=== PATIENT | female | born 2000 | race American Indian/Alaskan Native ===

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

== ENCOUNTER 2019-09-11 22:45 | Emergency (ER) | payer MEDICAID, OTHER ==
[2019-09-11] MEDS ORDERED: Amoxicillin 500 MG Cap PO ONE (23:15)
--- NOTE | 2019-09-11 23:23 | EDM.PDOC ---
ED HPI GENERAL MEDICAL PROBLEM - General Chief Complaint: ENT Problem Stated Complaint: TOOTH ACHE Time Seen by Provider: 09/11/19 23:10 Source of Information: Reports: Patient History Limitations: Reports: No Limitations - History of Present Illness INITIAL COMMENTS - FREE TEXT/NARRATIVE: left lower 2nd molar chipped one month ago tonight pain after chewing gum some swelling lower jaw no fever or chills. 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 Right Upper Tooth/Teeth Pain Score (Numeric/FACES): 4 - Related Data Allergies Allergy/AdvReac Type Severity Reaction Status Date / Time No Known Allergies Allergy Verified 09/11/19 22:50 Home Meds: Home Meds metFORMIN [Glucophage XR] 500 mg PO BIDMEALS 09/11/19 [History] Past Medical History - Past Health History Medical/Surgical History: Denies Medical/Surgical History Endocrine/Metabolic History: Reports: Diabetes, Type II Other Endocrine/Metabolic History: Pre diabetic Social & Family History - Family History Family Medical History: Noncontributory - Tobacco Use Smoking Status *Q: Current Every Day Smoker Years of Tobacco use: 1 Packs/Tins Daily: 0.1 - Caffeine Use Caffeine Use: Reports: Soda - Recreational Drug Use Recreational Drug Use: Yes Recreational Drug Type: Reports: Marijuana/Hashish ED ROS ENT - Review of Systems Review Of Systems: Comprehensive ROS is negative, except as noted in HPI. ED EXAM, ENT - Physical Exam Exam: See Below Exam Limited By: No Limitations General Appearance: Alert, No Apparent Distress Eye Exam: Bilateral Eye: EOMI Ears: Normal External Exam, Normal Canal Nose: Normal Inspection Mouth/Throat: Dental Abcess, Dental Pain (left lower 2nd molar ) Head: Atraumatic, Normocephalic Respiratory/Chest: No Respiratory Distress, Lungs Clear Cardiovascular: Normal Peripheral Pulses, Regular Rate, Rhythm Neurological: Alert, Oriented, Normal Cognition Psychiatric: Normal Affect, Normal Mood Skin: Warm, Dry, Intact Course - Vital Signs Last Recorded V/S: Last Vital Signs Temp 97.8 F 09/11/19 22:51 Pulse 87 09/11/19 22:51 Resp 18 09/11/19 22:51 BP 125/79 09/11/19 22:51 Pulse Ox 97 09/11/19 22:51 - Orders/Labs/Meds Meds: Medications Discontinued Medications Generic Name Dose Route Start Last Admin Trade Name Freq PRN Reason Stop Dose Admin Amoxicillin 500 mg 09/11/19 23:15 Amoxil PO 09/11/19 23:16 ONETIME ONE Departure - Departure Time of Disposition: 23:19 Disposition: Home, Self-Care 01 Condition: Good Clinical Impression: Pain due to dental caries - Discharge Information *PRESCRIPTION DRUG MONITORING PROGRAM REVIEWED*: No *COPY OF PRESCRIPTION DRUG MONITORING REPORT IN PATIENT CHASE: No Instructions: Dental Abscess, [id number] Additional Instructions: alternate tylenol and ibuprofen amoxicillin 500mg one three times daily chew opposite side room temperature liquids follow up with dentist this week Sepsis Event Note (ED) - Evaluation Sepsis Screening Result: No Definite Risk - Focused Exam Vital Signs: Vital Signs Temp Pulse Resp BP Pulse Ox 09/11/19 22:51 97.8 F 87 18 125/79 97
== END 2019-09-11 23:24 | disposition home or self-care (01) ==
LOC: DL.ED 22:45
DX: K02.9 Dental caries, unspecified (principal); K04.7 Periapical abscess without sinus; E11.9 Type 2 diabetes mellitus without complications; F17.210 Nicotine dependence, cigarettes, uncomplicated; Z79.84 Long term (current) use of oral hypoglycemic drugs
CPT/HCPCS: 99282; A9270

== ENCOUNTER 2020-04-17 20:19 | Emergency (ER) | payer MEDICAID ==
[2020-04-17 21:37] LABS: ANION GAP 17.1 mEq/L (7-13); CHLORIDE,CL 99 mmol/L (98-107); SODIUM,NA 137 mmol/L (136-145)
[2020-04-17] MEDS ORDERED: Insulin Regular, Human 100 Units/ML 3 ML Vial IV ONE (22:17)
--- NOTE | 2020-04-17 22:23 | EDM.PDOC ---
ED HPI GENERAL MEDICAL PROBLEM - General Chief Complaint: Neurological Problem Stated Complaint: LEFT FOOT LOSING FEELING, DIABETIC Time Seen by Provider: 04/17/20 20:40 Source of Information: Reports: Patient History Limitations: Reports: No Limitations - History of Present Illness INITIAL COMMENTS - FREE TEXT/NARRATIVE: ED with c/o noticing decreased sensation to top of left foot for past 2 days. Feels different when walking. Admits poor managment of diabetes in past couple of months, Has not checked sugars but knows they are higher as urinating more often. Has not been to clinic. No refills on Metformin and has not had any for at least past month and a half No other weakness or change in sensation. - Related Data Allergies Allergy/AdvReac Type Severity Reaction Status Date / Time No Known Allergies Allergy Verified 04/17/20 20:47 Home Meds: Home Meds metFORMIN [Glucophage XR] 500 mg PO BIDMEALS 09/11/19 [History] Past Medical History - Past Health History Medical/Surgical History: Denies Medical/Surgical History Endocrine/Metabolic History: Reports: Diabetes, Type II Other Endocrine/Metabolic History: Pre diabetic Social & Family History - Family History Family Medical History: No Pertinent Family History - Tobacco Use Tobacco Use Status *Q: Never Tobacco User Second Hand Smoke Exposure: No - Caffeine Use Caffeine Use: Reports: Soda - Alcohol Use Date of Last Drink: 04/12/20 - Recreational Drug Use Recreational Drug Use: No ED ROS GENERAL - Review of Systems Review Of Systems: Comprehensive ROS is negative, except as noted in HPI. ED EXAM, GENERAL - Physical Exam Exam: See Below Exam Limited By: No Limitations General Appearance: Alert, No Apparent Distress Eye Exam: Bilateral Eye: EOMI Ears: Normal External Exam, Hearing Grossly Normal Throat/Mouth: Normal Inspection, Normal Voice Head: Atraumatic, Normocephalic Neck: Normal Inspection, Full Range of Motion Respiratory/Chest: No Respiratory Distress, Lungs Clear, Normal Breath Sounds Cardiovascular: Normal Peripheral Pulses, Regular Rate, Rhythm GI/Abdominal: Normal Bowel Sounds, Soft Extremities: Normal Inspection, Normal Range of Motion, No Pedal Edema, Normal Capillary Refill, Other (slower flexion extneion on left than right mild decrease sensation dorsal mid foot in comparison to right). No: Limited Range of Motion Neurological: Alert, Oriented, Normal Cognition Psychiatric: Normal Affect Skin Exam: Warm, Intact, Normal Color. No: Ecchymosis Course - Vital Signs Last Recorded V/S: Last Vital Signs Temp 97.9 F 04/17/20 20:35 Pulse 81 04/17/20 20:35 Resp 19 04/17/20 20:35 BP 141/78 H 04/17/20 20:35 Pulse Ox 98 04/17/20 20:35 - Orders/Labs/Meds Labs: Laboratory Tests 04/17/20 04/17/20 04/17/20 Range/Units 20:44 20:57 20:57 WBC (5.0-10.0) 10^3/uL RBC (4.2-5.4) 10^6/uL Hgb (12.0-16.0) g/dL Hct (37.0-47.0) % MCV (80-100) fL MCH (27.0-34.0) pg MCHC (33.0-35.0) g/dL Plt Count (150-450) 10^3/uL Neut % (Auto) (42.2-75.2) % Lymph % (Auto) (20.5-50.1) % [place] % (Auto) (2-8) % Eos % (Auto) (1.0-3.0) % Baso % (Auto) (0.0-1.0) % Sodium (136-145) mmol/L Potassium (3.5-5.1) mmol/L Chloride (98-107) mmol/L Carbon Dioxide (21-32) mmol/L Anion Gap (7-13) mEq/L BUN (7-18) mg/dL Creatinine (0.55-1.02) mg/dL Est Cr Clr Drug Dosing mL/min Estimated GFR (MDRD) BUN/Creatinine Ratio (No establ ref range) Glucose (74-99) mg/dL POC Glucose 387 H (70-105) mg/dl Lactic Acid (0.4-2.0) mmol/L Calcium (8.5-10.1) mg/dL Total Bilirubin (0.2-1.0) mg/dL AST (15-37) U/L ALT (14-59) U/L Alkaline Phosphatase (46-116) U/L Total Protein (6.4-8.2) g/dL Albumin (3.4-5.0) g/dL Globulin Albumin/Globulin Ratio Urine Color Yellow (YELLOW) Urine Appearance Clear (CLEAR) Urine pH 5.5 (5.0-9.0) Ur Specific [place] 1.020 (1.005-1.030) Urine Protein Negative (NEGATIVE) Urine Glucose (UA) 500 H (NEGATIVE) Urine Ketones Negative (NEGATIVE) Urine Occult Blood Negative (NEGATIVE) Urine Nitrite Negative (NEGATIVE) Urine Bilirubin Negative (NEGATIVE) Urine Urobilinogen 0.2 (0.2-1.0) mg/dL Ur Leukocyte Esterase Negative (NEGATIVE) Urine HCG, Qual Negative Urine Opiates Screen (NEGATIVE) Ur Oxycodone Screen (NEGATIVE) Urine Methadone Screen (NEGATIVE) Ur Barbiturates Screen (NEGATIVE) U Tricyclic Antidepress (NEGATIVE) Ur Phencyclidine Scrn (NEGATIVE) Ur Amphetamine Screen (NEGATIVE) U Methamphetamines Scrn (NEGATIVE) Urine MDMA Screen (NEGATIVE) U Benzodiazepines Scrn (NEGATIVE) Urine Cocaine Screen (NEGATIVE) U Marijuana (THC) Screen (NEGATIVE) 04/17/20 04/17/20 04/17/20 Range/Units 20:57 21:00 21:00 WBC 6.3 (5.0-10.0) 10^3/uL RBC 4.20 (4.2-5.4) 10^6/uL Hgb 13.3 (12.0-16.0) g/dL Hct 39.0 (37.0-47.0) % MCV 92.9 D (80-100) fL MCH 31.7 (27.0-34.0) pg MCHC 34.1 (33.0-35.0) g/dL Plt Count 266 (150-450) 10^3/uL Neut % (Auto) 66.3 (42.2-75.2) % Lymph % (Auto) 25.2 (20.5-50.1) % [place] % (Auto) 6.8 (2-8) % Eos % (Auto) 1.4 (1.0-3.0) % Baso % (Auto) 0.3 (0.0-1.0) % Sodium 137 (136-145) mmol/L Potassium 4.1 (3.5-5.1) mmol/L Chloride 99 (98-107) mmol/L Carbon Dioxide 25 (21-32) mmol/L Anion Gap 17.1 H (7-13) mEq/L BUN 11 (7-18) mg/dL Creatinine 0.70 (0.55-1.02) mg/dL Est Cr Clr Drug Dosing 128.24 mL/min Estimated GFR (MDRD) > 60 BUN/Creatinine Ratio 15.7 (No establ ref range) Glucose 401 H* (74-99) mg/dL POC Glucose (70-105) mg/dl Lactic Acid (0.4-2.0) mmol/L Calcium 8.7 (8.5-10.1) mg/dL Total Bilirubin 0.5 (0.2-1.0) mg/dL AST 12 L (15-37) U/L ALT 39 (14-59) U/L Alkaline Phosphatase 146 H (46-116) U/L Total Protein 7.3 (6.4-8.2) g/dL Albumin 3.5 (3.4-5.0) g/dL Globulin 3.8 Albumin/Globulin Ratio 0.9 Urine Color (YELLOW) Urine Appearance (CLEAR) Urine pH (5.0-9.0) Ur Specific [place] (1.005-1.030) Urine Protein (NEGATIVE) Urine Glucose (UA) (NEGATIVE) Urine Ketones (NEGATIVE) Urine Occult Blood (NEGATIVE) Urine Nitrite (NEGATIVE) Urine Bilirubin (NEGATIVE) Urine Urobilinogen (0.2-1.0) mg/dL Ur Leukocyte Esterase (NEGATIVE) Urine HCG, Qual Urine Opiates Screen Negative (NEGATIVE) Ur Oxycodone Screen Negative (NEGATIVE) Urine Methadone Screen Negative (NEGATIVE) Ur Barbiturates Screen Negative (NEGATIVE) U Tricyclic Antidepress Negative (NEGATIVE) Ur Phencyclidine Scrn Negative (NEGATIVE) Ur Amphetamine Screen Negative (NEGATIVE) U Methamphetamines Scrn Negative (NEGATIVE) Urine MDMA Screen Negative (NEGATIVE) U Benzodiazepines Scrn Negative (NEGATIVE) Urine Cocaine Screen Negative (NEGATIVE) U Marijuana (THC) Screen Negative (NEGATIVE) 04/17/20 04/17/20 Range/Units 21:00 22:57 WBC (5.0-10.0) 10^3/uL RBC (4.2-5.4) 10^6/uL Hgb (12.0-16.0) g/dL Hct (37.0-47.0) % MCV (80-100) fL MCH (27.0-34.0) pg MCHC (33.0-35.0) g/dL Plt Count (150-450) 10^3/uL Neut % (Auto) (42.2-75.2) % Lymph % (Auto) (20.5-50.1) % [place] % (Auto) (2-8) % Eos % (Auto) (1.0-3.0) % Baso % (Auto) (0.0-1.0) % Sodium (136-145) mmol/L Potassium (3.5-5.1) mmol/L Chloride (98-107) mmol/L Carbon Dioxide (21-32) mmol/L Anion Gap (7-13) mEq/L BUN (7-18) mg/dL Creatinine (0.55-1.02) mg/dL Est Cr Clr Drug Dosing mL/min Estimated GFR (MDRD) BUN/Creatinine Ratio (No establ ref range) Glucose (74-99) mg/dL POC Glucose 295 H (70-105) mg/dl Lactic Acid 2.0 (0.4-2.0) mmol/L Calcium (8.5-10.1) mg/dL Total Bilirubin (0.2-1.0) mg/dL AST (15-37) U/L ALT (14-59) U/L Alkaline Phosphatase (46-116) U/L Total Protein (6.4-8.2) g/dL Albumin (3.4-5.0) g/dL Globulin Albumin/Globulin Ratio Urine Color (YELLOW) Urine Appearance (CLEAR) Urine pH (5.0-9.0) Ur Specific [place] (1.005-1.030) Urine Protein (NEGATIVE) Urine Glucose (UA) (NEGATIVE) Urine Ketones (NEGATIVE) Urine Occult Blood (NEGATIVE) Urine Nitrite (NEGATIVE) Urine Bilirubin (NEGATIVE) Urine Urobilinogen (0.2-1.0) mg/dL Ur Leukocyte Esterase (NEGATIVE) Urine HCG, Qual Urine Opiates Screen (NEGATIVE) Ur Oxycodone Screen (NEGATIVE) Urine Methadone Screen (NEGATIVE) Ur Barbiturates Screen (NEGATIVE) U Tricyclic Antidepress (NEGATIVE) Ur Phencyclidine Scrn (NEGATIVE) Ur Amphetamine Screen (NEGATIVE) U Methamphetamines Scrn (NEGATIVE) Urine MDMA Screen (NEGATIVE) U Benzodiazepines Scrn (NEGATIVE) Urine Cocaine Screen (NEGATIVE) U Marijuana (THC) Screen (NEGATIVE) Meds: Medications Discontinued Medications Generic Name Dose Route Start Last Admin Trade Name Abdirashid PRN Reason Stop Dose Admin Insulin Human Regular 3 unit 04/17/20 22:17 04/17/20 22:39 Humulin R IV 04/17/20 22:18 Not Given ONETIME ONE Insulin Human Regular 3 unit 04/17/20 22:26 04/17/20 22:30 Humulin R SUBCUT 04/17/20 22:27 3 unit ONETIME ONE Administration Departure - Departure Time of Disposition: 22:19 Disposition: Home, Self-Care 01 Condition: Good Clinical Impression: Noncompliance with diabetes treatment, Hyperglycemia due to diabetes mellitus Peripheral neuropathy Qualifiers: Peripheral neuropathy type: polyneuropathy, unspecified Qualified Code(s): G62.9 - Polyneuropathy, unspecified - Discharge Information *PRESCRIPTION DRUG MONITORING PROGRAM REVIEWED*: No *COPY OF PRESCRIPTION DRUG MONITORING REPORT IN PATIENT CHASE: No Instructions: Peripheral Neuropathy, Hyperglycemia, [id number] Forms: ED Department Discharge Additional Instructions: Follow up in clinic this week resume diabetic medications, blood sugar monitoring and diabetic diet metformin 500mg twice daily Sepsis Event Note (ED) - Evaluation Sepsis Screening Result: No Definite Risk - Focused Exam Vital Signs: Vital Signs Temp Pulse Resp BP Pulse Ox 04/17/20 20:35 97.9 F 81 19 141/78 H 98
[2020-04-17] MEDS ORDERED: Insulin Regular, Human 100 Units/ML 3 ML Vial SUBCUT ONE (22:26)
== END 2020-04-17 23:00 | disposition home or self-care (01) ==
LOC: DL.ED 20:19
DX: E11.65 Type 2 diabetes mellitus with hyperglycemia (principal); E11.42 Type 2 diabetes mellitus with diabetic polyneuropathy; Z91.19 Patient's noncompliance with other medical treatment and regimen
CPT/HCPCS: 36415; 80053; 80305; 81003; 81025; 82962; 83605; 85025; 99283; J1815

== ENCOUNTER 2020-04-29 18:58 | Emergency (ER) | payer MEDICAID ==
--- NOTE | 2020-04-29 19:52 | EDM.PDOC ---
ED HPI GENERAL MEDICAL PROBLEM - General Chief Complaint: Diabetic Complaint Stated Complaint: CANNOT WALK, DIABETIC, CANNOT FEEL LEGS Time Seen by Provider: 04/29/20 19:47 Source of Information: Reports: Patient, Family (Mother), RN, RN Notes Reviewed History Limitations: Reports: No Limitations - History of Present Illness INITIAL COMMENTS - FREE TEXT/NARRATIVE: Patient presents to the ED via personal vehicle with mother for complaints of cramping, numbness, and tingling to her left lower extremity. The patient reports she has been experiencing numbness and tingling to her foot for approximately two weeks; she reports she will trip over the extremity as she cannot feel its position in space. Additionally, she has been experiencing significant cramping to the calf of this extremity for the past two days. She states the cramping is transient in nature and mostly occurs when she is up walking. She reports she was examined in a local clinic today for this problem and was diagnosed with hypomagnesemia; she was also set up for an OP Venous Doppler for tomorrow to r/o blood clots. She denies edema, erythema, or constant sharp pain to the area. She denies sitting for long periods of time and is not on control. She does attest to a history of an uncomplicated COVID infection in October of 2019. She denies fever, shaking chills, palpitations, chest pain/pressure, or shortness of breath. She denies tobacco, alcohol, and recreational drug use. - Related Data Allergies Allergy/AdvReac Type Severity Reaction Status Date / Time No Known Allergies Allergy Verified 04/29/20 19:25 Home Meds: Home Meds metFORMIN [Glucophage XR] 1,000 mg PO BIDMEALS 09/11/19 [History] Melatonin 0 mg PO BEDTIME PRN 04/29/20 [History] Sertraline [Zoloft] 0 mg PO BEDTIME 04/29/20 [History] Past Medical History - Past Health History Medical/Surgical History: Denies Medical/Surgical History Psychiatric History: Reports: Depression Endocrine/Metabolic History: Reports: Diabetes, Type II Other Endocrine/Metabolic History: Pre diabetic Social & Family History - Family History Family Medical History: No Pertinent Family History - Tobacco Use Tobacco Use Status *Q: Never Tobacco User Second Hand Smoke Exposure: No - Caffeine Use Caffeine Use: Reports: None - Recreational Drug Use Recreational Drug Use: No ED ROS GENERAL - Review of Systems Review Of Systems: Comprehensive ROS is negative, except as noted in HPI. ED EXAM GENERAL NO PERIP PULSE - Physical Exam Exam: See Below Exam Limited By: No Limitations General Appearance: Alert, No Apparent Distress Head: Atraumatic, Normocephalic Neck: Normal Inspection, Supple, Non-Tender, Full Range of Motion Respiratory/Chest: No Respiratory Distress, Lungs Clear, Normal Breath Sounds, No Accessory Muscle Use, Chest Non-Tender Cardiovascular: Normal Peripheral Pulses, Regular Rate, Rhythm, No Edema, No G allop, No JVD, No Murmur, No Rub (Female) Exam: Deferred Rectal (Female) Exam: Deferred Back Exam: Normal Inspection, Full Range of Motion Extremities: Normal Inspection, Normal Range of Motion, Non-Tender, No Pedal Edema, Normal Capillary Refill. No: Pedal Edema, Dominic's Sign, Leg Pain, Increased Warmth, Redness Neurological: Alert, Oriented, CN II-XII Intact, Normal Cognition, Normal Gait, Normal Reflexes, No Motor/Sensory Deficits Psychiatric: Normal Affect, Normal Mood Skin Exam: Warm, Dry, Intact, Normal Color, No Rash. No: Ecchymosis, Erythema, Mottled, Pallor, Petechiae Course - Vital Signs Last Recorded V/S: Last Vital Signs Temp 98.4 F 04/29/20 19:18 Pulse 92 04/29/20 19:18 Resp 18 04/29/20 19:18 BP 142/74 H 04/29/20 19:18 Pulse Ox 98 04/29/20 19:18 - Orders/Labs/Meds Labs: Laboratory Tests 04/29/20 04/29/20 04/29/20 Range/Units 19:21 19:28 19:28 WBC 8.8 (5.0-10.0) 10^3/uL RBC 4.66 (4.2-5.4) 10^6/uL Hgb 14.8 D (12.0-16.0) g/dL Hct 43.6 (37.0-47.0) % MCV 93.6 (80-100) fL MCH 31.8 (27.0-34.0) pg MCHC 33.9 (33.0-35.0) g/dL Plt Count 303 (150-450) 10^3/uL Neut % (Auto) 71.3 (42.2-75.2) % Lymph % (Auto) 21.3 (20.5-50.1) % [place] % (Auto) 5.7 (2-8) % Eos % (Auto) 1.5 (1.0-3.0) % Baso % (Auto) 0.2 (0.0-1.0) % D-Dimer, Quantitative < 100 (0-400) ng/mL Sodium (136-145) mmol/L Potassium (3.5-5.1) mmol/L Chloride (98-107) mmol/L Carbon Dioxide (21-32) mmol/L Anion Gap (7-13) mEq/L BUN (7-18) mg/dL Creatinine (0.55-1.02) mg/dL Est Cr Clr Drug Dosing mL/min Estimated GFR (MDRD) BUN/Creatinine Ratio (No establ ref range) Glucose (74-99) mg/dL POC Glucose 300 H (70-105) mg/dl Calcium (8.5-10.1) mg/dL Magnesium (1.8-2.4) mg/dL Total Bilirubin (0.2-1.0) mg/dL AST (15-37) U/L ALT (14-59) U/L Alkaline Phosphatase (46-116) U/L C-Reactive Protein (0.0-0.9) mg/dL Total Protein (6.4-8.2) g/dL Albumin (3.4-5.0) g/dL Globulin Albumin/Globulin Ratio Ketones 04/29/20 Range/Units 19:28 WBC (5.0-10.0) 10^3/uL RBC (4.2-5.4) 10^6/uL Hgb (12.0-16.0) g/dL Hct (37.0-47.0) % MCV (80-100) fL MCH (27.0-34.0) pg MCHC (33.0-35.0) g/dL Plt Count (150-450) 10^3/uL Neut % (Auto) (42.2-75.2) % Lymph % (Auto) (20.5-50.1) % [place] % (Auto) (2-8) % Eos % (Auto) (1.0-3.0) % Baso % (Auto) (0.0-1.0) % D-Dimer, Quantitative (0-400) ng/mL Sodium 136 (136-145) mmol/L Potassium 3.9 (3.5-5.1) mmol/L Chloride 98 (98-107) mmol/L Carbon Dioxide 26 (21-32) mmol/L Anion Gap 15.9 H (7-13) mEq/L BUN 12 (7-18) mg/dL Creatinine 0.75 (0.55-1.02) mg/dL Est Cr Clr Drug Dosing 119.69 mL/min Estimated GFR (MDRD) > 60 BUN/Creatinine Ratio 16.0 (No establ ref range) Glucose 316 H (74-99) mg/dL POC Glucose (70-105) mg/dl Calcium 8.6 (8.5-10.1) mg/dL Magnesium 1.5 L (1.8-2.4) mg/dL Total Bilirubin 0.5 (0.2-1.0) mg/dL AST 14 L (15-37) U/L ALT 35 (14-59) U/L Alkaline Phosphatase 143 H (46-116) U/L C-Reactive Protein 1.6 H (0.0-0.9) mg/dL Total Protein 7.7 (6.4-8.2) g/dL Albumin 3.6 (3.4-5.0) g/dL Globulin 4.1 Albumin/Globulin Ratio 0.9 Ketones Negative Meds: Medications Discontinued Medications Generic Name Dose Route Start Last Admin Trade Name Freq PRN Reason Stop Dose Admin Magnesium Oxide 500 mg 04/29/20 20:30 04/29/20 20:49 Magnesium Oxide PO 04/29/20 20:31 500 mg ONETIME ONE Administration Magnesium Oxide Confirm 04/29/20 20:50 04/29/20 20:55 Magnesium Oxide Administered 04/29/20 20:51 Not Given Dose 500 mg .ROUTE .STK-MED ONE - Re-Assessments/Exams Free Text/Narrative Re-Assessment/Exam: 04/29/20 D-dimer WNL. CBC unremarkable for acute processes, no evidence of infection or anemia. Lab values discussed with patient and her mother, as well as a d-dimer WNL rules out the possibility of DVT. CMP remarkable for glucose of 316, patient states she has not taken her Metf ormin today. No serum ketones present. Anion gap open at 18.7, likely related to elevated blood sugars. Kidney function WNL. Instructed patient to take her Metformin when she gets home and to follow a diabetic-friendly diet. Magnesium 1.5, patient given Mag Oxide 500mg PO here today and sent home with additional dose for the morning. She reports the provider who saw her in clinic today prescribed her this medication, but she has not yet had it filled. Patient instructed to start this medication and follow up with her provider in one week to reassess magnesium levels and reexamine foot weakness. Red flag signs and symptoms which would warrant reevaluation discussed. Patient and her mother verbalized understanding and agreement with the plan of care. Departure - Departure Time of Disposition: 20:34 Disposition: Home, Self-Care 01 Condition: Good Clinical Impression: Hyperglycemia due to diabetes mellitus, Hypomagnesemia, Cramps of left lower extremity - Discharge Information *PRESCRIPTION DRUG MONITORING PROGRAM REVIEWED*: Not Applicable *COPY OF PRESCRIPTION DRUG MONITORING REPORT IN PATIENT CHASE: Not Applicable Instructions: Hypomagnesemia, Leg Cramps Forms: ED Department Discharge Additional Instructions: 1.) Drink plenty of water to stay hydrated, as hydration helps muscle cramps as well. 2.) Follow up with your primary care provider in one week to recheck your magnesium levels and for ongoing management of foot weakness. 3.) Magnesium can cause loose stools so eat a bland diet while you are taking this medication, avoid high-fat, greasy, and spicy foods. Sepsis Event Note (ED) - Evaluation Sepsis Screening Result: No Definite Risk - Focused Exam Vital Signs: Vital Signs Temp Pulse Resp BP Pulse Ox 04/29/20 19:18 98.4 F 92 18 142/74 H 98
[2020-04-29 20:02] LABS: ANION GAP 15.9 mEq/L (7-13); CHLORIDE,CL 98 mmol/L (98-107); SODIUM,NA 136 mmol/L (136-145)
== END 2020-04-29 20:55 | disposition home or self-care (01) ==
LOC: DL.ED 18:58
DX: E11.65 Type 2 diabetes mellitus with hyperglycemia (principal); E83.42 Hypomagnesemia; R25.2 Cramp and spasm; Z79.84 Long term (current) use of oral hypoglycemic drugs
CPT/HCPCS: 36415; 80053; 82009; 82962; 83735; 85025; 85379; 86140; 99284; A9270

== ENCOUNTER 2021-02-20 11:41 | Emergency (ER) | payer MEDICAID ==
--- NOTE | 2021-02-20 12:26 | EDM.PDOC ---
ED HPI GENERAL MEDICAL PROBLEM - General Chief Complaint: Respiratory Problem Stated Complaint: POSSIBLE FLU / NO TEMP OR COUGH Time Seen by Provider: 02/20/21 13:00 Source of Information: Reports: Patient History Limitations: Reports: No Limitations - History of Present Illness INITIAL COMMENTS - FREE TEXT/NARRATIVE: This 21 yo female reports to the ED with a 2 day history of chills, fever (home temp 102), headache, body aches and cough. The patient reports she was tested for covid on 02/19/21 at [place] and was negative. Patient has the COVID vaccination, but not influenza. The patient took Tylenol today at 1100 with fever relief. Duration: Day(s): (2) Location: Reports: Generalized Quality: Reports: Other Severity: Moderate Improves with: Reports: None Worsens with: Reports: None Context: Reports: Other Associated Symptoms: Reports: No Other Symptoms Treatments [employer]: Reports: Acetaminophen - Related Data Allergies Allergy/AdvReac Type Severity Reaction Status Date / Time No Known Allergies Allergy Verified 02/20/21 12:32 Home Meds: Home Meds metFORMIN [Glucophage XR] 1,000 mg PO BIDMEALS 09/11/19 [History] Melatonin 0 mg PO BEDTIME PRN 04/29/20 [History] buPROPion [buPROPion XL] 300 mg PO DAILY 02/20/21 [History] Past Medical History - Past Health History Medical/Surgical History: Denies Medical/Surgical History Psychiatric History: Reports: Depression Endocrine/Metabolic History: Reports: Diabetes, Type II Other Endocrine/Metabolic History: Pre diabetic Social & Family History - Family History Family Medical History: No Pertinent Family History - Caffeine Use Caffeine Use: Reports: None ED ROS GENERAL - Review of Systems Review Of Systems: Comprehensive ROS is negative, except as noted in HPI. ED EXAM, GENERAL - Physical Exam Exam: See Below Exam Limited By: No Limitations General Appearance: Alert, WD/WN, Moderate Distress Eye Exam: Bilateral Eye: EOMI, Normal Inspection, PERRL Ears: Normal External Exam, Normal Canal, Hearing Grossly Normal, Normal TMs Nose: Normal Inspection, Normal Mucosa, No Blood Throat/Mouth: Normal Inspection, Normal Lips, Normal Teeth, Normal Gums, Normal Oropharynx, Normal Voice, No Airway Compromise Head: Atraumatic, Normocephalic Neck: Normal Inspection, Supple, Non-Tender, Full Range of Motion Respiratory/Chest: No Respiratory Distress, Lungs Clear, Normal Breath Sounds, No Accessory Muscle Use, Chest Non-Tender Cardiovascular: Normal Peripheral Pulses, Regular Rate, Rhythm, No Edema, No Gallop, No JVD, No Murmur, No Rub GI/Abdominal: Normal Bowel Sounds, Soft, Non-Tender, No Organomegaly, No Distention, No Abnormal Bruit, No Mass (Female) Exam: Deferred Rectal (Female) Exam: Deferred Back Exam: Normal Inspection, Full Range of Motion, NT Extremities: Normal Inspection, Normal Range of Motion, Non-Tender, Normal Capillary Refill, No Pedal Edema Neurological: Alert, Oriented, CN II-XII Intact, Normal Cognition, Normal Gait, Normal Reflexes, No Motor/Sensory Deficits Psychiatric: Normal Affect, Normal Mood Skin Exam: Warm, Dry, Intact, Normal Color, No Rash Lymphatic: No Adenopathy Course - Vital Signs Last Recorded V/S: Last Vital Signs Temp 98.0 F 02/20/21 12:11 Pulse 105 H 02/20/21 12:11 Resp 20 02/20/21 12:11 BP 141/99 H 02/20/21 12:11 Pulse Ox 94 L 02/20/21 12:11 - Orders/Labs/Meds Labs: Laboratory Tests 02/20/21 Range/Units 11:55 Influenza Type A RNA Positive H (NEGATIVE) Influenza Type B RNA Negative (NEGATIVE) SARS-CoV-2 RNA (FRAN) Negative (NEGATIVE) Departure - Departure Time of Disposition: 13:16 Disposition: Home, Self-Care 01 Condition: Fair Clinical Impression: Influenza A, Gastroesophageal reflux disease - Discharge Information *PRESCRIPTION DRUG MONITORING PROGRAM REVIEWED*: Not Applicable *COPY OF PRESCRIPTION DRUG MONITORING REPORT IN PATIENT CHASE: Not Applicable Instructions: Influenza, Adult Forms: ED Department Discharge Care Plan Goals: The patient was advised of the examination and lab results during the visit. The patient was discharged with a script for Tamiflu (75 mg) to take 1 by mouth 2 times per day for 5 days. The patient may take Tylenol or ibuprofen as directed for temporary symptom relief. The patient was encouraged to stick to a BRAT diet (bananas, rice, applesauce and toast) with small frequent sips of fluid. If the patient has any additional symptoms or concerns, the patient should follow-up with her primary care facility or return to the emergency department. Sepsis Event Note (ED) - Evaluation Sepsis Screening Result: No Definite Risk - Focused Exam Vital Signs: Vital Signs Temp Pulse Resp BP Pulse Ox 02/20/21 12:11 98.0 F 105 H 20 141/99 H 94 L
[2021-02-20 12:40] LABS: CORONAVIRUS COVID-19 NAA NEGATIVE (NEGATIVE)
== END 2021-02-20 13:31 | disposition home or self-care (01) ==
LOC: DL.ED 11:41
DX: J10.1 Influenza due to other identified influenza virus with other respiratory manifestations (principal); K21.9 Gastro-esophageal reflux disease without esophagitis; E11.9 Type 2 diabetes mellitus without complications; Z79.84 Long term (current) use of oral hypoglycemic drugs; Z20.822 Contact with and (suspected) exposure to COVID-19
CPT/HCPCS: 0240U; 99283

== ENCOUNTER 2022-01-19 19:37 | Emergency (ER) | payer SELFPAY ==
[2022-01-19] MEDS ORDERED: Methotrexate 2.5 MG Tab PO ONE (20:52)
== END 2022-01-19 21:20 | disposition home or self-care (01) ==
LOC: DL.ED 19:37
DX: L40.0 Psoriasis vulgaris (principal); E11.9 Type 2 diabetes mellitus without complications; Z79.899 Other long term (current) drug therapy
CPT/HCPCS: 99282; J8610

== ENCOUNTER 2022-10-06 22:24 | Emergency (ER) | payer SELFPAY ==
[2022-10-06 23:05] LABS: HEMATOCRIT 43.3 % (37.0-47.0); HEMOGLOBIN 14.4 g/dL (12.0-16.0); MEAN CORPUSCULAR HEMOGLOBIN 31.6 pg (27.0-34.0); MEAN CORPUSCULAR HGB CONC 33.3 g/dL (33.0-35.0); PLATELET COUNT,PLT 454 10^3/uL (150-450); RED BLOOD CELL COUNT 4.56 10^6/uL (4.2-5.4); WHITE BLOOD CELL COUNT,WBC 14.6 10^3/uL (5.0-10.0)
[2022-10-06 23:12] LABS: HCG QUALITATIVE,SERUM NEGATIVE (NEGATIVE)
[2022-10-06 23:13] LABS: ALANINE AMINOTRANSFERASE,ALT 13 U/L (14-59); ALBUMIN 1.2 g/dL (3.4-5.0); ALKALINE PHOSPHATASE 82 U/L (46-116); ANION GAP 7.6 mEq/L (7-13); ASPARTATE AMNIOTRANSFERASE,AST 14 U/L (15-37); BILIRUBIN TOTAL 0.3 mg/dL (0.2-1.0); BLOOD UREA NITROGEN,BUN 9 mg/dL (7-18); BUN/CREATININE RATIO 13.6 (No establ ref range); C-REACTIVE PROTEIN 0.2 mg/dL (0.0-0.9); CALCIUM 7.4 mg/dL (8.5-10.1); CARBON DIOXIDE,CO2 29 mmol/L (21-32); CHLORIDE,CL 108 mmol/L (98-107); CREATININE 0.66 mg/dL (0.55-1.02); GLUCOSE RANDOM 139 mg/dL (70-99); KETONES,BLOOD NEGATIVE; LIPASE 22 U/L (73-393); MAGNESIUM 1.4 mg/dL (1.8-2.4); POTASSIUM,K 3.6 mmol/L (3.5-5.1); PROTEIN TOTAL,TP 4.3 g/dL (6.4-8.2); SODIUM,NA 141 mmol/L (136-145)
[2022-10-06 23:17] LABS: LACTIC ACID 1.1 mmol/L (0.4-2.0)
[2022-10-06 23:18] LABS: BASOPHILS PERCENT AUTO 0.2 % (0.0-1.0); LYMPHOCYTES PERCENT AUTO 16.8 % (20.5-50.1)
[2022-10-06 23:19] LABS: BAND PERCENT MAN 2 %; EOSINOPHILS PERCENT MAN 13 % (1-3); LYMPHOCYTES PERCENT MAN 19 % (20-50); MONOCYTES PERCENT MAN 8 % (2-8); SEG NEUTROPHILS PERCENT MAN 58 % (42-75)
[2022-10-06 23:21] LABS: A/G RATIO 0.39; ESTIMATED GFR 126 mL/min (>=60)
[2022-10-06 23:52] LABS: APPEARANCE,URINE CLEAR (CLEAR); BILIRUBIN,URINE NEGATIVE (NEGATIVE); COLOR,URINE YELLOW (YELLOW); GLUCOSE,URINE NEGATIVE (NEGATIVE); KETONES,URINE TRACE (NEGATIVE); LEUKOCYTE ESTERASE,URINE NEGATIVE (NEGATIVE); NITRITE,URINE NEGATIVE (NEGATIVE); OCCULT BLOOD,URINE NEGATIVE (NEGATIVE); PH,URINE 5.5 (5.0-9.0); PROTEIN,URINE NEGATIVE (NEGATIVE); UROBILINOGEN,URINE 0.2 mg/dL (0.2-1.0)
[2022-10-06 23:53] LABS: AMPHETAMINES,URINE NEGATIVE (NEGATIVE); BARBITURATES,URINE NEGATIVE (NEGATIVE); BENZODIAZEPINE,URINE NEGATIVE (NEGATIVE); MDMA (ECSTASY), URINE NEGATIVE (NEGATIVE); METHADONE,URINE NEGATIVE (NEGATIVE); METHAMPHETAMINES,URINE NEGATIVE (NEGATIVE); OPIATES,URINE NEGATIVE (NEGATIVE); OXYCODONE,URINE NEGATIVE (NEGATIVE); PHENCYCLIDINE,URINE NEGATIVE (NEGATIVE); TCA,URINE NEGATIVE (NEGATIVE)
[2022-10-07] MEDS ORDERED: Magnesium Sulfate/Water 2 GM in Premix Bag 1 BAG IV ONE (00:51)
[2022-10-07] MEDS ORDERED: Ondansetron 4 MG/2 ML SDV IVPUSH ONE (01:43)
== END 2022-10-07 02:03 | disposition home or self-care (01) ==
LOC: DL.ED 22:24
DX: R60.0 Localized edema (principal); E88.09 Other disorders of plasma-protein metabolism, not elsewhere classified; E83.42 Hypomagnesemia; E11.649 Type 2 diabetes mellitus with hypoglycemia without coma; R11.0 Nausea; F12.90 Cannabis use, unspecified, uncomplicated; D72.829 Elevated white blood cell count, unspecified; R19.7 Diarrhea, unspecified; Z79.84 Long term (current) use of oral hypoglycemic drugs; Z79.899 Other long term (current) drug therapy
CPT/HCPCS: 36415; 71045; 80053; 80305-QW; 81003; 82009; 82947; 83605; 83690; 83735; 83880; 84703; 85025; 85379; 86140; 96365; 96375; 99284; 99285-25; J2405; J3475

== ENCOUNTER 2022-10-08 13:52 | Emergency (ER) | payer SELFPAY ==
[2022-10-08] MEDS ORDERED: Sodium Chloride 0.9% 10 ML Syringe FLUSH PRN (15:05)
[2022-10-08] MEDS ORDERED: Ondansetron 4 MG/2 ML SDV IV ONE (15:15)
[2022-10-08] MEDS ORDERED: Famotidine 20 MG/2 ML SDV IVPUSH ONE (15:15)
[2022-10-08] MEDS ORDERED: Sodium Chloride 0.9% 1,000 ML IV ONE (15:15)
[2022-10-08 15:35] LABS: HEMATOCRIT 43.3 % (37.0-47.0); HEMOGLOBIN 14.1 g/dL (12.0-16.0); MEAN CORPUSCULAR HEMOGLOBIN 31.1 pg (27.0-34.0); MEAN CORPUSCULAR HGB CONC 32.6 g/dL (33.0-35.0); MEAN CORPUSCULAR VOLUME 95.6 fL (80-100); PLATELET COUNT,PLT 408 10^3/uL (150-450); RED BLOOD CELL COUNT 4.53 10^6/uL (4.2-5.4); WHITE BLOOD CELL COUNT,WBC 8.3 10^3/uL (5.0-10.0)
[2022-10-08 15:39] LABS: BASOPHILS PERCENT AUTO 0.2 % (0.0-1.0); EOSINOPHILS PERCENT AUTO 23.2 % (1.0-3.0); LYMPHOCYTES PERCENT AUTO 27.4 % (20.5-50.1); MONOCYTES PERCENT AUTO 8.1 % (2-8); NEUTROPHILS PERCENT AUTO 41.1 % (42.2-75.2)
[2022-10-08 16:09] LABS: ALANINE AMINOTRANSFERASE,ALT 12 U/L (14-59); ALKALINE PHOSPHATASE 79 U/L (46-116); AMYLASE 11 U/L (25-115); ANION GAP 6.8 mEq/L (7-13); ASPARTATE AMNIOTRANSFERASE,AST 12 U/L (15-37); BILIRUBIN TOTAL 0.4 mg/dL (0.2-1.0); BLOOD UREA NITROGEN,BUN 10 mg/dL (7-18); BUN/CREATININE RATIO 17.2 (No establ ref range); CALCIUM 7.2 mg/dL (8.5-10.1); CARBON DIOXIDE,CO2 30 mmol/L (21-32); CHLORIDE,CL 110 mmol/L (98-107); CREATININE 0.58 mg/dL (0.55-1.02); GLUCOSE RANDOM 126 mg/dL (70-99); POTASSIUM,K 3.8 mmol/L (3.5-5.1); SODIUM,NA 143 mmol/L (136-145)
[2022-10-08 16:13] LABS: A/G RATIO 0.33; ESTIMATED GFR 130 mL/min (>=60); LIPASE < 10 U/L (73-393)
[2022-10-08] MEDS ORDERED: Metoclopramide 10 MG/2 ML SDV IVPUSH ONE (16:48)
[2022-10-08] MEDS ORDERED: diphenhydrAMINE 50 MG/ML SDV IVPUSH ONE (16:48)
[2022-10-08] MEDS ORDERED: Take Home: Ondansetron 4 MG Tab.DIS, 5 Tab Pack PO ONE (16:49)
[2022-10-08 16:59] LABS: EOSINOPHILS PERCENT MAN 18 % (1-3); LYMPHOCYTES PERCENT MAN 28 % (20-50); MONOCYTES PERCENT MAN 6 % (2-8); SEG NEUTROPHILS PERCENT MAN 48 % (42-75)
== END 2022-10-08 17:40 | disposition home or self-care (01) ==
LOC: DL.ED 13:52
DX: E11.43 Type 2 diabetes mellitus with diabetic autonomic (poly)neuropathy (principal); K31.84 Gastroparesis; K20.0 Eosinophilic esophagitis; E66.9 Obesity, unspecified; Z68.30 Body mass index [BMI] 30.0-30.9, adult; Z79.84 Long term (current) use of oral hypoglycemic drugs
CPT/HCPCS: 36415; 80053; 82009; 82150; 82800; 83690; 85025; 96361; 96374; 96375; 99284; J1200; J2405; J2765; J3490; J7030; Q0162

== ENCOUNTER 2022-10-12 23:39 | Observation (INO) | payer SELFPAY ==
[2022-10-13] MEDS ORDERED: Ibuprofen 400 MG Tab PO ONE (01:06)
[2022-10-13] MEDS ORDERED: Famotidine 20 MG/2 ML SDV IVPUSH ONE (01:08)
[2022-10-13] MEDS ORDERED: diphenhydrAMINE 50 MG/ML SDV IVPUSH ONE (01:08)
[2022-10-13] MEDS ORDERED: Acetaminophen 500 MG Tab PO ONE (01:09)
[2022-10-13] MEDS ORDERED: Sodium Chloride 0.9% 1,000 ML IV ONE (01:13)
[2022-10-13] MEDS ORDERED: Iopamidol 612 MG/ML 100 ML Bottle IVPUSH ONE (01:13)
[2022-10-13] MEDS ORDERED: Albumin 5% 250 ML IV SCH (01:15)
[2022-10-13 01:20] LABS: HEMATOCRIT 41.1 % (37.0-47.0); HEMOGLOBIN 13.6 g/dL (12.0-16.0); MEAN CORPUSCULAR HEMOGLOBIN 31.3 pg (27.0-34.0); MEAN CORPUSCULAR HGB CONC 33.1 g/dL (33.0-35.0); MEAN CORPUSCULAR VOLUME 94.7 fL (80-100); PLATELET COUNT,PLT 430 10^3/uL (150-450); RED BLOOD CELL COUNT 4.34 10^6/uL (4.2-5.4); WHITE BLOOD CELL COUNT,WBC 12.5 10^3/uL (5.0-10.0)
[2022-10-13 01:28] LABS: EOSINOPHILS PERCENT AUTO 13.4 % (1.0-3.0); MONOCYTES PERCENT AUTO 6.9 % (2-8); NEUTROPHILS PERCENT AUTO 65.5 % (42.2-75.2)
[2022-10-13 01:29] LABS: BASOPHILS PERCENT AUTO 0.2 % (0.0-1.0)
[2022-10-13 01:41] LABS: KETONES,BLOOD NEGATIVE
[2022-10-13 01:44] LABS: ALANINE AMINOTRANSFERASE,ALT 10 U/L (14-59); ALBUMIN 0.9 g/dL (3.4-5.0); ALKALINE PHOSPHATASE 83 U/L (46-116); ANION GAP 9.7 mEq/L (7-13); ASPARTATE AMNIOTRANSFERASE,AST 11 U/L (15-37); BILIRUBIN TOTAL 0.3 mg/dL (0.2-1.0); BLOOD UREA NITROGEN,BUN 8 mg/dL (7-18); BUN/CREATININE RATIO 13.6 (No establ ref range); C-REACTIVE PROTEIN 0.6 mg/dL (0.0-0.9); CALCIUM 7.1 mg/dL (8.5-10.1); CARBON DIOXIDE,CO2 27 mmol/L (21-32); CHLORIDE,CL 109 mmol/L (98-107); CREATININE 0.59 mg/dL (0.55-1.02); EST CRCL DRUG DOSING (CG) 144.21 mL/min; GLUCOSE RANDOM 101 mg/dL (70-99); MAGNESIUM 1.3 mg/dL (1.8-2.4); POTASSIUM,K 3.7 mmol/L (3.5-5.1); PROTEIN TOTAL,TP 3.9 g/dL (6.4-8.2); SODIUM,NA 142 mmol/L (136-145)
[2022-10-13 01:50] LABS: BAND PERCENT MAN 6 %; EOSINOPHILS PERCENT MAN 10 % (1-3); LYMPHOCYTES PERCENT MAN 13 % (20-50); MONOCYTES PERCENT MAN 4 % (2-8); SEG NEUTROPHILS PERCENT MAN 67 % (42-75)
[2022-10-13 01:51] LABS: ESTIMATED GFR 130 mL/min (>=60); LACTIC ACID < 0.3 mmol/L (0.4-2.0); LIPASE < 10 U/L (73-393)
[2022-10-13 02:05] LABS: SEDIMENTATION RATE MANUAL 3 mm/hr (0-20)
[2022-10-13] MEDS ORDERED: Magnesium Sulfate/Water 2 GM in Premix Bag 1 BAG IV ONE (03:08)
[2022-10-13] MEDS ORDERED: Albuterol/Ipratropium 3.0-0.5 MG/3 ML Neb Soln NEB PRN (04:06)
[2022-10-13] MEDS ORDERED: Temazepam 15 MG Cap PO PRN (04:06)
[2022-10-13] MEDS ORDERED: Acetaminophen 325 MG Tab PO PRN (04:06)
[2022-10-13] MEDS ORDERED: oxyCODONE 5 MG Tab PO PRN (04:06)
[2022-10-13] MEDS ORDERED: HYDROmorphone 0.5 MG/0.5 ML Syringe IVPUSH PRN (04:06)
[2022-10-13] MEDS ORDERED: Metoprolol Tartrate 5 MG/5 ML SDV IVPUSH PRN (04:14)
[2022-10-13] MEDS ORDERED: hydrALAZINE 20 MG/ML SDV IVPUSH PRN (04:14)
[2022-10-13 04:16] LABS: HCG QUALITATIVE,SERUM NEGATIVE (NEGATIVE)
[2022-10-13 04:41] LABS: T4 FREE 1.41 ng/dL (0.76-1.46); TSH ULTRASENSITIVE 0.78 uIU/mL (0.36-3.74)
[2022-10-13] MEDS ORDERED: Thiamine 200 MG/2 ML MDV IVPUSH ONE (05:11)
[2022-10-13] MEDS ORDERED: MVI, Adult with Vitamin K 10 ML, Folic Acid 1 MG, Thiamine 100 MG in Lactated Ringers 1... IV ONE ×4 (05:11)
[2022-10-13 06:05] LABS: BASOPHILS PERCENT AUTO 0.2 % (0.0-1.0); EOSINOPHILS PERCENT AUTO 15.1 % (1.0-3.0); HEMATOCRIT 37.7 % (37.0-47.0); HEMOGLOBIN 12.4 g/dL (12.0-16.0); LYMPHOCYTES PERCENT AUTO 20.9 % (20.5-50.1); MEAN CORPUSCULAR HEMOGLOBIN 31.1 pg (27.0-34.0); MEAN CORPUSCULAR HGB CONC 32.9 g/dL (33.0-35.0); MEAN CORPUSCULAR VOLUME 94.5 fL (80-100); MONOCYTES PERCENT AUTO 8.1 % (2-8); NEUTROPHILS PERCENT AUTO 55.7 % (42.2-75.2); PLATELET COUNT,PLT 392 10^3/uL (150-450); RED BLOOD CELL COUNT 3.99 10^6/uL (4.2-5.4); WHITE BLOOD CELL COUNT,WBC 10.4 10^3/uL (5.0-10.0)
[2022-10-13 06:27] LABS: ALBUMIN 1.2 g/dL (3.4-5.0); ANION GAP 7.4 mEq/L (7-13); BILIRUBIN TOTAL 0.5 mg/dL (0.2-1.0); BUN/CREATININE RATIO 13.1 (No establ ref range); CALCIUM 7.1 mg/dL (8.5-10.1); CREATININE 0.61 mg/dL (0.55-1.02); EST CRCL DRUG DOSING (CG) 139.48 mL/min; MAGNESIUM 1.8 mg/dL (1.8-2.4); POTASSIUM,K 3.4 mmol/L (3.5-5.1); PROTEIN TOTAL,TP 3.8 g/dL (6.4-8.2)
[2022-10-13 06:28] LABS: A/G RATIO 0.46
[2022-10-13] MEDS: Famotidine 20 MG Tab PO SCH ×3 (07:11→21:30)
[2022-10-13] MEDS: Nicotine 14 MG/24 Hr Patch TRDERM SCH ×2 (07:11→08:18)
[2022-10-13 09:17] LABS: HEMOGLOBIN A1C 8.8 % (<5.7)
[2022-10-13 09:47] LABS: APPEARANCE,URINE SLIGHTLY CLOUDY (CLEAR); BILIRUBIN,URINE NEGATIVE (NEGATIVE); COLOR,URINE YELLOW (YELLOW); GLUCOSE,URINE NEGATIVE (NEGATIVE); KETONES,URINE 15 (NEGATIVE); LEUKOCYTE ESTERASE,URINE NEGATIVE (NEGATIVE); NITRITE,URINE NEGATIVE (NEGATIVE); OCCULT BLOOD,URINE LARGE (NEGATIVE); PH,URINE 5.5 (5.0-9.0); PROTEIN,URINE NEGATIVE (NEGATIVE); UROBILINOGEN,URINE 0.2 mg/dL (0.2-1.0)
[2022-10-13 09:58] LABS: AMORPHOUS SEDIMENT,URINE FEW /HPF (NOT SEEN); BACTERIA,URINE FEW /HPF (0-FEW/HPF); EPITHELIAL CELLS,URINE MODERATE /HPF (NOT SEEN); MUCUS,URINE FEW /LPF (NOT SEEN); RBC,URINE 0-5 /HPF (0-5)
[2022-10-13] MEDS: Saccharomyces Boulardii (Probiotic) 250 MG Cap PO SCH ×2 (11:55→16:12)
[2022-10-13] MEDS ORDERED: Potassium Chloride 10 MEQ Tab.ER PO ONE (12:00)
[2022-10-13] MEDS ORDERED: Melatonin 3 MG Tab PO PRN (12:58)
[2022-10-13] MEDS ORDERED: [UNRECOGNIZED DRUG - REMARK] TOP PRN (12:58)
[2022-10-13] MEDS ORDERED: Triamcinolone Acetonide 0.1% Oint 15 GM Tube TOP PRN (12:58)
[2022-10-13] MEDS: Ondansetron 4 MG/2 ML SDV IVPUSH PRN (16:12)
[2022-10-13] MEDS ORDERED: Loperamide 2 MG Cap PO PRN (17:11)
[2022-10-13] MEDS: Folic Acid 1 MG Tab PO SCH (21:31)
[2022-10-13] MEDS: Multivitamin Tab PO SCH (21:31)
[2022-10-13] MEDS: Sodium Chloride 0.9% 10 ML Syringe FLUSH PRN (21:32)
[2022-10-14] MEDS: Ondansetron 4 MG/2 ML SDV IVPUSH PRN ×3 (06:10→21:15)
[2022-10-14] MEDS: Sodium Chloride 0.9% 10 ML Syringe FLUSH PRN ×2 (06:10→21:58)
[2022-10-14 06:24] LABS: BASOPHILS PERCENT AUTO 0.2 % (0.0-1.0); EOSINOPHILS PERCENT AUTO 17.6 % (1.0-3.0); HEMATOCRIT 40.6 % (37.0-47.0); HEMOGLOBIN 13.4 g/dL (12.0-16.0); LYMPHOCYTES PERCENT AUTO 23.8 % (20.5-50.1); MEAN CORPUSCULAR HEMOGLOBIN 31.5 pg (27.0-34.0); MEAN CORPUSCULAR VOLUME 95.3 fL (80-100); MONOCYTES PERCENT AUTO 8.1 % (2-8); NEUTROPHILS PERCENT AUTO 50.3 % (42.2-75.2); PLATELET COUNT,PLT 408 10^3/uL (150-450); RED BLOOD CELL COUNT 4.26 10^6/uL (4.2-5.4); WHITE BLOOD CELL COUNT,WBC 10.3 10^3/uL (5.0-10.0)
[2022-10-14 06:46] LABS: ALBUMIN 1.1 g/dL (3.4-5.0); ANION GAP 8.5 mEq/L (7-13); BILIRUBIN TOTAL 0.5 mg/dL (0.2-1.0); BUN/CREATININE RATIO 9.8 (No establ ref range); C-REACTIVE PROTEIN 0.9 mg/dL (0.0-0.9); CALCIUM 7.1 mg/dL (8.5-10.1); CREATININE 0.51 mg/dL (0.55-1.02); EST CRCL DRUG DOSING (CG) 166.83 mL/min; MAGNESIUM 1.4 mg/dL (1.8-2.4); POTASSIUM,K 3.5 mmol/L (3.5-5.1); PROTEIN TOTAL,TP 3.9 g/dL (6.4-8.2)
[2022-10-14 06:49] LABS: A/G RATIO 0.39
[2022-10-14 07:21] LABS: SEDIMENTATION RATE MANUAL 3 mm/hr (0-20)
[2022-10-14] MEDS: Saccharomyces Boulardii (Probiotic) 250 MG Cap PO SCH ×3 (09:13→17:36)
[2022-10-14] MEDS: buPROPion 150 MG Tab.ER PO SCH (09:14)
[2022-10-14] MEDS: Famotidine 20 MG Tab PO SCH ×2 (09:14→21:56)
[2022-10-14] MEDS: Ferrous Sulfate 325 MG Tab PO SCH (09:14)
[2022-10-14] MEDS: Nicotine 14 MG/24 Hr Patch TRDERM SCH (09:14)
[2022-10-14] MEDS ORDERED: Magnesium Sulfate/Water 2 GM in Premix Bag 1 BAG IV ONE (09:20)
[2022-10-14] MEDS ORDERED: Furosemide 20 MG/2 ML VIAL IVPUSH ONE (09:31)
[2022-10-14] MEDS: Cholecalciferol (Vitamin D3) 25 MCG Tab PO SCH (10:26)
[2022-10-14] MEDS: Triamcinolone Acetonide 0.1% Crm 15 GM Tube TOP SCH ×2 (10:38→21:54)
[2022-10-14] MEDS: Albumin Human 25 GM in Premix Bag 1 BAG IV SCH ×2 (12:42→17:36)
[2022-10-14] MEDS: MESALAMINE 400 MG PO SCH ×2 (15:19→21:52)
[2022-10-14] MEDS ORDERED: Thiamine 100 MG Tab PO SCH (21:00)
[2022-10-14] MEDS: Folic Acid 1 MG Tab PO SCH (21:57)
[2022-10-14] MEDS: Multivitamin Tab PO SCH (21:57)
[2022-10-15] MEDS ORDERED: Albumin Human 100 ML ONE (01:53)
[2022-10-15] MEDS: Albumin Human 25 GM in Premix Bag 1 BAG IV SCH (02:10)
[2022-10-15 06:20] LABS: BASOPHILS PERCENT AUTO 0.2 % (0.0-1.0); HEMATOCRIT 31.8 % (37.0-47.0); HEMOGLOBIN 10.4 g/dL (12.0-16.0); LYMPHOCYTES PERCENT AUTO 21.5 % (20.5-50.1); MEAN CORPUSCULAR HEMOGLOBIN 31.3 pg (27.0-34.0); MEAN CORPUSCULAR HGB CONC 32.7 g/dL (33.0-35.0); MEAN CORPUSCULAR VOLUME 95.8 fL (80-100); MONOCYTES PERCENT AUTO 8.3 % (2-8); PLATELET COUNT,PLT 302 10^3/uL (150-450); RED BLOOD CELL COUNT 3.32 10^6/uL (4.2-5.4); WHITE BLOOD CELL COUNT,WBC 8.2 10^3/uL (5.0-10.0)
[2022-10-15 06:50] LABS: ALANINE AMINOTRANSFERASE,ALT 13 U/L (14-59); ALBUMIN 2.1 g/dL (3.4-5.0); ALKALINE PHOSPHATASE 57 U/L (46-116); ANION GAP 8.4 mEq/L (7-13); ASPARTATE AMNIOTRANSFERASE,AST 11 U/L (15-37); BILIRUBIN TOTAL 0.7 mg/dL (0.2-1.0); BLOOD UREA NITROGEN,BUN 5 mg/dL (7-18); BUN/CREATININE RATIO 10.9 (No establ ref range); CALCIUM 7.2 mg/dL (8.5-10.1); CARBON DIOXIDE,CO2 28 mmol/L (21-32); CHLORIDE,CL 109 mmol/L (98-107); CREATININE 0.46 mg/dL (0.55-1.02); EST CRCL DRUG DOSING (CG) 184.97 mL/min; GLUCOSE RANDOM 73 mg/dL (70-99); MAGNESIUM 1.4 mg/dL (1.8-2.4); POTASSIUM,K 3.4 mmol/L (3.5-5.1); PROTEIN TOTAL,TP 3.9 g/dL (6.4-8.2); SODIUM,NA 142 mmol/L (136-145)
[2022-10-15 07:00] LABS: A/G RATIO 1.17; C-REACTIVE PROTEIN < 0.2 mg/dL (0.0-0.9); ESTIMATED GFR 138 mL/min (>=60)
[2022-10-15] MEDS ORDERED: Magnesium Sulfate/Water 2 GM in Premix Bag 1 BAG IV ONE (07:53)
[2022-10-15 07:54] LABS: SEDIMENTATION RATE MANUAL 2 mm/hr (0-20)
[2022-10-15] MEDS ORDERED: Furosemide 20 MG/2 ML VIAL IVPUSH ONE ×2 (07:54→11:00)
[2022-10-15] MEDS ORDERED: Potassium Chloride 10 MEQ Tab.ER PO SCH (08:00)
[2022-10-15] MEDS: Saccharomyces Boulardii (Probiotic) 250 MG Cap PO SCH ×2 (09:20→12:39)
[2022-10-15] MEDS: Ferrous Sulfate 325 MG Tab PO SCH (09:20)
[2022-10-15] MEDS: Famotidine 20 MG Tab PO SCH (09:20)
[2022-10-15] MEDS: Nicotine 14 MG/24 Hr Patch TRDERM SCH (09:21)
[2022-10-15] MEDS: Cholecalciferol (Vitamin D3) 25 MCG Tab PO SCH (09:21)
[2022-10-15] MEDS: buPROPion 150 MG Tab.ER PO SCH (09:21)
[2022-10-15] MEDS: Ondansetron 4 MG/2 ML SDV IVPUSH PRN (10:55)
[2022-10-15] MEDS: MESALAMINE 400 MG PO SCH ×2 (11:02→13:17)
[2022-10-15] MEDS: Triamcinolone Acetonide 0.1% Crm 15 GM Tube TOP SCH (11:03)
[2022-10-15] MEDS ORDERED: predniSONE 20 MG Tab PO ONE (13:00)
== END 2022-10-15 16:00 | disposition home or self-care (01) ==
LOC: DL.ED 23:39 → UNDOADMOB 10-13 03:13 → DL.MS 10-13 03:13
PROVIDERS: ADMIT Internal Medicine; ATTEND Internal Medicine
DX: K52.9 Noninfective gastroenteritis and colitis, unspecified (principal); D72.829 Elevated white blood cell count, unspecified; E87.8 Other disorders of electrolyte and fluid balance, not elsewhere classified; E83.42 Hypomagnesemia; E88.09 Other disorders of plasma-protein metabolism, not elsewhere classified; R60.1 Generalized edema; F10.90 Alcohol use, unspecified, uncomplicated; E11.9 Type 2 diabetes mellitus without complications; F32.A Depression, unspecified; E66.9 Obesity, unspecified; Z79.4 Long term (current) use of insulin; Z79.899 Other long term (current) drug therapy; F17.210 Nicotine dependence, cigarettes, uncomplicated; Z68.29 Body mass index [BMI] 29.0-29.9, adult
CPT/HCPCS: 36415; 74177; 80053; 81001; 81377; 81383; 82009; 82306; 82947; 83036; 83605; 83690; 83735; 84439; 84443; 84703; 85025; 85651; 86140; 87045; 87046; 87328; 87329; 87493; 87899; 94010; 96365; 96366; 96367; 96375; 96376; 99222; 99232; 99239; 99284; 99285; A9270; G0378; J1200; J1940; J2405; J3411; J3475; J3490; J7120; J7512; P9045; P9047; Q9967

== ENCOUNTER → 2022-11-19 | Day surgery (SDC) | payer BC, OTHER ==
[~2022-11-19] MED LIST: Dextrose 5%-0.45% NaCl 1,000 ML IV SCH; Midazolam 1 MG/ML 2 ML SDV IV ONE; Midazolam 1 MG/ML 2 ML SDV ONE; fentaNYL 100 MCG/2 ML SDV IV ONE; fentaNYL 100 MCG/2 ML SDV ONE
== END | disposition home or self-care (01) ==
LOC: DL.ENDO 06:52
PROVIDERS: ATTEND Internal Medicine Gastroenterology
DX: K29.50 Unspecified chronic gastritis without bleeding (principal); K29.80 Duodenitis without bleeding; K26.3 Acute duodenal ulcer without hemorrhage or perforation; B96.81 Helicobacter pylori [H. pylori] as the cause of diseases classified elsewhere; K52.9 Noninfective gastroenteritis and colitis, unspecified; K31.89 Other diseases of stomach and duodenum; E66.09 Other obesity due to excess calories; E11.9 Type 2 diabetes mellitus without complications; F12.90 Cannabis use, unspecified, uncomplicated; E77.8 Other disorders of glycoprotein metabolism; E88.09 Other disorders of plasma-protein metabolism, not elsewhere classified; F10.90 Alcohol use, unspecified, uncomplicated; Z68.27 Body mass index [BMI] 27.0-27.9, adult
CPT/HCPCS: 81025; 87077; J2250; J3010; J7042

== ENCOUNTER 2022-11-30 17:07 | Emergency (ER) | payer BC, OTHER | END 2022-11-30 19:20 | disposition left against medical advice (07) | LOC: DL.ED 17:07 | DX: Z53.21 Procedure and treatment not carried out due to patient leaving prior to being seen by health care provider (principal) ==

== ENCOUNTER 2022-12-08 16:44 | Observation (INO) | payer BC, OTHER ==
[2022-12-08 17:36] LABS: BASOPHILS PERCENT AUTO 0.2 % (0.0-1.0); EOSINOPHILS PERCENT AUTO 6.2 % (1.0-3.0); LYMPHOCYTES PERCENT AUTO 25.7 % (20.5-50.1); MEAN CORPUSCULAR HEMOGLOBIN 31.7 pg (27.0-34.0); MEAN CORPUSCULAR HGB CONC 34.1 g/dL (33.0-35.0); MEAN CORPUSCULAR VOLUME 92.8 fL (80-100); MONOCYTES PERCENT AUTO 7.3 % (2-8); NEUTROPHILS PERCENT AUTO 60.6 % (42.2-75.2); PLATELET COUNT,PLT 385 10^3/uL (150-450); RED BLOOD CELL COUNT 4.42 10^6/uL (4.2-5.4); WHITE BLOOD CELL COUNT,WBC 10.6 10^3/uL (5.0-10.0)
[2022-12-08 17:57] LABS: ALANINE AMINOTRANSFERASE,ALT 28 U/L (14-59); ALBUMIN 1.7 g/dL (3.4-5.0); ALKALINE PHOSPHATASE 85 U/L (46-116); ANION GAP 9.8 mEq/L (7-13); ASPARTATE AMNIOTRANSFERASE,AST 17 U/L (15-37); BILIRUBIN TOTAL 0.3 mg/dL (0.2-1.0); BLOOD UREA NITROGEN,BUN 5 mg/dL (7-18); BUN/CREATININE RATIO 9.3 (No establ ref range); CARBON DIOXIDE,CO2 28 mmol/L (21-32); CHLORIDE,CL 106 mmol/L (98-107); CREATININE 0.54 mg/dL (0.55-1.02); GLUCOSE RANDOM 112 mg/dL (70-99); POTASSIUM,K 2.8 mmol/L (3.5-5.1); PROTEIN TOTAL,TP 5.2 g/dL (6.4-8.2); SODIUM,NA 141 mmol/L (136-145)
[2022-12-08 17:58] LABS: A/G RATIO 0.49; ESTIMATED GFR 133 mL/min (>=60)
[2022-12-08] MEDS ORDERED: Potassium Chloride 10 MEQ Tab.ER PO ONE (18:06)
[2022-12-08] MEDS ORDERED: Magnesium Sulfate/Water 2 GM in Premix Bag 1 BAG IV ONE ×5 (18:07→18:08)
[2022-12-08 18:13] LABS: HCG QUALITATIVE,SERUM NEGATIVE (NEGATIVE)
[2022-12-08] MEDS ORDERED: Ondansetron 4 MG/2 ML SDV IV ONE (18:13)
[2022-12-08] MEDS ORDERED: Pantoprazole 40 MG Vial IVPUSH ONE (18:13)
[2022-12-08] MEDS: NS with KCl 40mEq 1,000 ML IV SCH (19:59)
[2022-12-08] MEDS ORDERED: Acetaminophen/HYDROcodone 325-5 MG Tab PO PRN (21:03)
[2022-12-08] MEDS ORDERED: Acetaminophen 325 MG Tab PO PRN (21:03)
[2022-12-08] MEDS ORDERED: Atropine/Diphenoxylate 0.025-2.5 MG Tab PO PRN (21:08)
[2022-12-08 22:00] LABS: APPEARANCE,URINE CLEAR (CLEAR); BILIRUBIN,URINE NEGATIVE (NEGATIVE); COLOR,URINE YELLOW (YELLOW); GLUCOSE,URINE 100 (NEGATIVE); KETONES,URINE TRACE (NEGATIVE); LEUKOCYTE ESTERASE,URINE NEGATIVE (NEGATIVE); NITRITE,URINE NEGATIVE (NEGATIVE); OCCULT BLOOD,URINE NEGATIVE (NEGATIVE); PROTEIN,URINE NEGATIVE (NEGATIVE); UROBILINOGEN,URINE 0.2 mg/dL (0.2-1.0)
[2022-12-08 22:02] LABS: METHAMPHETAMINES,URINE NEGATIVE (NEGATIVE)
[2022-12-08 22:03] LABS: AMPHETAMINES,URINE NEGATIVE (NEGATIVE); BARBITURATES,URINE NEGATIVE (NEGATIVE); BENZODIAZEPINE,URINE NEGATIVE (NEGATIVE); MDMA (ECSTASY), URINE NEGATIVE (NEGATIVE); METHADONE,URINE NEGATIVE (NEGATIVE); OPIATES,URINE NEGATIVE (NEGATIVE); OXYCODONE,URINE NEGATIVE (NEGATIVE); PHENCYCLIDINE,URINE NEGATIVE (NEGATIVE); TCA,URINE NEGATIVE (NEGATIVE)
[2022-12-08 22:23] LABS: BACTERIA,URINE FEW /HPF (0-FEW/HPF); EPITHELIAL CELLS,URINE MODERATE /HPF (NOT SEEN); RBC,URINE 0-5 /HPF (0-5)
[2022-12-08 22:27] LABS: CREATININE,URINE RAND 152.32 mg/dL (No establ ref range); PROTEIN CREATININE RATIO,URINE 192.4 mg/g (<150.0); PROTEIN,URINE RANDOM 29.3 mg/dL (0.0-11.9)
[2022-12-08] MEDS ORDERED: HYDROmorphone 0.5 MG/0.5 ML Syringe IVPUSH ONE (22:39)
[2022-12-08] MEDS ORDERED: HYDROmorphone 0.5 MG/0.5 ML Syringe ONE (22:41)
[2022-12-08] MEDS: Ondansetron 4 MG/2 ML SDV IVPUSH PRN (23:02)
[2022-12-09] MEDS: NS with KCl 40mEq 1,000 ML IV SCH ×2 (00:16→04:21)
[2022-12-09 06:30] LABS: ANION GAP 8.8 mEq/L (7-13); CALCIUM 6.9 mg/dL (8.5-10.1); CREATININE 0.51 mg/dL (0.55-1.02); EST CRCL DRUG DOSING (CG) 154.37 mL/min; MAGNESIUM 2.1 mg/dL (1.8-2.4); POTASSIUM,K 3.8 mmol/L (3.5-5.1)
[2022-12-09] MEDS: Ondansetron 4 MG/2 ML SDV IVPUSH PRN (08:54)
[2022-12-09] MEDS ORDERED: Pantoprazole 40 MG Vial IVPUSH SCH (09:00)
== END 2022-12-09 11:00 | disposition home or self-care (01) ==
LOC: DL.ED 16:44 → DL.MS 19:02 → UNDOADMOB 19:14 → UNDODISOB 12-09 11:00
PROVIDERS: ADMIT Internal Medicine; ATTEND Internal Medicine
DX: E87.6 Hypokalemia (principal); E83.42 Hypomagnesemia; K52.9 Noninfective gastroenteritis and colitis, unspecified; E11.9 Type 2 diabetes mellitus without complications; A04.8 Other specified bacterial intestinal infections; E55.9 Vitamin D deficiency, unspecified; R63.4 Abnormal weight loss; E88.09 Other disorders of plasma-protein metabolism, not elsewhere classified; E66.9 Obesity, unspecified; Z79.899 Other long term (current) drug therapy; Z79.4 Long term (current) use of insulin; Z68.27 Body mass index [BMI] 27.0-27.9, adult
CPT/HCPCS: 36415; 80048; 80053; 80305; 81001; 81025; 82570; 83735; 84156; 84703; 85025; 93005; 96365; 96366; 96368; 96375; 96376; 99223; 99239; 99285; A9270; C9113; G0378; J1170; J2405; J3475; J3480

== ENCOUNTER 2022-12-17 17:06 | Emergency (ER) | payer BC, OTHER ==
[2022-12-17 17:38] LABS: BASOPHILS PERCENT AUTO 0.3 % (0.0-1.0); EOSINOPHILS PERCENT AUTO 5.8 % (1.0-3.0); HEMATOCRIT 43.8 % (37.0-47.0); HEMOGLOBIN 14.4 g/dL (12.0-16.0); LYMPHOCYTES PERCENT AUTO 23.3 % (20.5-50.1); MEAN CORPUSCULAR HEMOGLOBIN 31.2 pg (27.0-34.0); MEAN CORPUSCULAR HGB CONC 32.9 g/dL (33.0-35.0); MEAN CORPUSCULAR VOLUME 94.8 fL (80-100); MONOCYTES PERCENT AUTO 6.5 % (2-8); NEUTROPHILS PERCENT AUTO 64.1 % (42.2-75.2); PLATELET COUNT,PLT 374 10^3/uL (150-450); RED BLOOD CELL COUNT 4.62 10^6/uL (4.2-5.4); WHITE BLOOD CELL COUNT,WBC 10.2 10^3/uL (5.0-10.0)
[2022-12-17] MEDS ORDERED: Ketorolac 30 MG/ML SDV IVPUSH ONE (17:46)
[2022-12-17] MEDS ORDERED: Dicyclomine 20 MG/2 ML SDV IM ONE (17:46)
[2022-12-17] MEDS ORDERED: Ondansetron 4 MG/2 ML SDV IVPUSH ONE (17:46)
[2022-12-17] MEDS ORDERED: Sodium Chloride 0.9% 1,000 ML IV ONE (17:49)
[2022-12-17 17:58] LABS: ALBUMIN 1.6 g/dL (3.4-5.0); BILIRUBIN TOTAL 0.3 mg/dL (0.2-1.0); BUN/CREATININE RATIO 9.7 (No establ ref range); CALCIUM 7.9 mg/dL (8.5-10.1); CREATININE 0.62 mg/dL (0.55-1.02); EST CRCL DRUG DOSING (CG) 137.23 mL/min; MAGNESIUM 1.5 mg/dL (1.8-2.4); PROTEIN TOTAL,TP 5.4 g/dL (6.4-8.2)
[2022-12-17 18:03] LABS: A/G RATIO 0.42; ANION GAP 9.3 mEq/L (7-13); POTASSIUM,K 4.3 mmol/L (3.5-5.1)
[2022-12-17] MEDS ORDERED: Magnesium Sulfate/Water 2 GM in Premix Bag 1 BAG IV ONE (18:07)
[2022-12-17 18:32] LABS: APPEARANCE,URINE CLEAR (CLEAR); BILIRUBIN,URINE NEGATIVE (NEGATIVE); COLOR,URINE YELLOW (YELLOW); GLUCOSE,URINE NEGATIVE (NEGATIVE); KETONES,URINE NEGATIVE (NEGATIVE); LEUKOCYTE ESTERASE,URINE TRACE (NEGATIVE); NITRITE,URINE NEGATIVE (NEGATIVE); OCCULT BLOOD,URINE NEGATIVE (NEGATIVE); PROTEIN,URINE NEGATIVE (NEGATIVE); UROBILINOGEN,URINE 0.2 mg/dL (0.2-1.0)
[2022-12-17 18:43] LABS: RBC,URINE 0-5 /HPF (0-5)
[2022-12-17 18:44] LABS: BACTERIA,URINE RARE /HPF (0-FEW/HPF); EPITHELIAL CELLS,URINE FEW /HPF (NOT SEEN); MUCUS,URINE FEW /LPF (NOT SEEN)
== END 2022-12-17 20:15 | disposition home or self-care (01) ==
LOC: DL.ED 17:06
DX: R10.10 Upper abdominal pain, unspecified (principal); E83.42 Hypomagnesemia; R74.01 Elevation of levels of liver transaminase levels; Z86.16 Personal history of COVID-19; Z79.899 Other long term (current) drug therapy
CPT/HCPCS: 36415; 80053; 81001; 81025; 83690; 83735; 85025; 87086; 96365; 96366; 96372; 96375; 99283; 99284; J0500; J1885; J2405; J3475; J7030

== ENCOUNTER 2022-12-27 17:04 | Emergency (ER) | payer BC, OTHER ==
[2022-12-27] MEDS ORDERED: Sodium Chloride 0.9% 10 ML Syringe FLUSH PRN (17:13)
[2022-12-27 17:29] LABS: HEMATOCRIT 45.1 % (37.0-47.0); HEMOGLOBIN 15.2 g/dL (12.0-16.0); MEAN CORPUSCULAR HEMOGLOBIN 31.5 pg (27.0-34.0); MEAN CORPUSCULAR HGB CONC 33.7 g/dL (33.0-35.0); MEAN CORPUSCULAR VOLUME 93.6 fL (80-100); PLATELET COUNT,PLT 448 10^3/uL (150-450); RED BLOOD CELL COUNT 4.82 10^6/uL (4.2-5.4); WHITE BLOOD CELL COUNT,WBC 9.5 10^3/uL (5.0-10.0)
[2022-12-27 17:30] LABS: BASOPHILS PERCENT AUTO 0.2 % (0.0-1.0); EOSINOPHILS PERCENT AUTO 10.8 % (1.0-3.0); LYMPHOCYTES PERCENT AUTO 22.3 % (20.5-50.1); MONOCYTES PERCENT AUTO 6.4 % (2-8); NEUTROPHILS PERCENT AUTO 60.3 % (42.2-75.2)
[2022-12-27] MEDS ORDERED: Ondansetron 4 MG/2 ML SDV IVPUSH ONE (17:32)
[2022-12-27] MEDS ORDERED: Sodium Chloride 0.9% 1,000 ML IV ONE (17:32)
[2022-12-27 17:57] LABS: ALBUMIN 1.8 g/dL (3.4-5.0); ANION GAP 9.4 mEq/L (7-13); BILIRUBIN TOTAL 0.4 mg/dL (0.2-1.0); BUN/CREATININE RATIO 15.7 (No establ ref range); C-REACTIVE PROTEIN 0.08 ng/dL (<=0.30); CALCIUM 7.8 mg/dL (8.5-10.1); CREATININE 0.7 mg/dL (0.55-1.02); EOSINOPHILS PERCENT MAN 11 % (1-3); EST CRCL DRUG DOSING (CG) 112.47 mL/min; LYMPHOCYTES PERCENT MAN 24 % (20-50); MAGNESIUM 1.5 mg/dL (1.8-2.4); MONOCYTES PERCENT MAN 4 % (2-8); POTASSIUM,K 3.4 mmol/L (3.5-5.1); PROTEIN TOTAL,TP 5.9 g/dL (6.4-8.2); SEG NEUTROPHILS PERCENT MAN 61 % (42-75); TSH ULTRASENSITIVE 0.45 uIU/mL (0.36-3.74)
[2022-12-27 17:58] LABS: A/G RATIO 0.44
[2022-12-27 18:03] LABS: APPEARANCE,URINE CLEAR (CLEAR); BILIRUBIN,URINE NEGATIVE (NEGATIVE); COLOR,URINE YELLOW (YELLOW); GLUCOSE,URINE NEGATIVE (NEGATIVE); KETONES,URINE TRACE (NEGATIVE); LEUKOCYTE ESTERASE,URINE TRACE (NEGATIVE); NITRITE,URINE NEGATIVE (NEGATIVE); OCCULT BLOOD,URINE NEGATIVE (NEGATIVE); PROTEIN,URINE TRACE (NEGATIVE); UROBILINOGEN,URINE 0.2 mg/dL (0.2-1.0)
[2022-12-27] MEDS ORDERED: Magnesium Sulfate/Water 2 GM in Premix Bag 1 BAG IV ONE (18:07)
[2022-12-27 18:12] LABS: EPITHELIAL CELLS,URINE MODERATE /HPF (NOT SEEN); RBC,URINE 0-5 /HPF (0-5)
[2022-12-27 18:13] LABS: BACTERIA,URINE MODERATE /HPF (0-FEW/HPF); MUCUS,URINE MODERATE /LPF (NOT SEEN)
[2022-12-27] MEDS ORDERED: Ciprofloxacin 500 MG Tab PO ONE (18:23)
== END 2022-12-27 20:21 | disposition home or self-care (01) ==
LOC: DL.ED 17:04
DX: R11.2 Nausea with vomiting, unspecified (principal); R19.7 Diarrhea, unspecified; Z86.16 Personal history of COVID-19; Z79.899 Other long term (current) drug therapy
CPT/HCPCS: 36415; 80053; 81001; 82150; 83605; 83690; 83735; 84425; 84443; 85025; 86140; 87086; 96365; 96366; 96367; 96375; 99283; 99284-25; A9270-GY; J2405; J3411; J3475; J3490; J7030

== ENCOUNTER 2023-01-13 22:22 | Emergency (ER) | payer OTHER ==
[2023-01-13 23:30] LABS: BASOPHILS PERCENT AUTO 0.2 % (0.0-1.0); EOSINOPHILS PERCENT AUTO 3.9 % (1.0-3.0); HEMATOCRIT 40.9 % (37.0-47.0); HEMOGLOBIN 13.6 g/dL (12.0-16.0); LYMPHOCYTES PERCENT AUTO 9.1 % (20.5-50.1); MEAN CORPUSCULAR HEMOGLOBIN 31.4 pg (27.0-34.0); MEAN CORPUSCULAR HGB CONC 33.3 g/dL (33.0-35.0); MEAN CORPUSCULAR VOLUME 94.5 fL (80-100); MONOCYTES PERCENT AUTO 3.7 % (2-8); NEUTROPHILS PERCENT AUTO 83.1 % (42.2-75.2); PLATELET COUNT,PLT 423 10^3/uL (150-450); RED BLOOD CELL COUNT 4.33 10^6/uL (4.2-5.4); WHITE BLOOD CELL COUNT,WBC 16.4 10^3/uL (5.0-10.0)
[2023-01-13 23:55] LABS: ALANINE AMINOTRANSFERASE,ALT 45 U/L (14-59); ALBUMIN 1.2 g/dL (3.4-5.0); ALKALINE PHOSPHATASE 99 U/L (46-116); ANION GAP 8.8 mEq/L (7-13); ASPARTATE AMNIOTRANSFERASE,AST 24 U/L (15-37); BILIRUBIN TOTAL 0.6 mg/dL (0.2-1.0); BLOOD UREA NITROGEN,BUN 10 mg/dL (7-18); BUN/CREATININE RATIO 23.3 (No establ ref range); CALCIUM 7.2 mg/dL (8.5-10.1); CARBON DIOXIDE,CO2 25 mmol/L (21-32); CHLORIDE,CL 109 mmol/L (98-107); CREATININE 0.43 mg/dL (0.55-1.02); EST CRCL DRUG DOSING (CG) 196.18 mL/min; GLUCOSE RANDOM 97 mg/dL (70-99); LIPASE 14 U/L (16-77); MAGNESIUM 1.1 mg/dL (1.8-2.4); POTASSIUM,K 3.8 mmol/L (3.5-5.1); PROTEIN TOTAL,TP 4.6 g/dL (6.4-8.2); SODIUM,NA 139 mmol/L (136-145)
[2023-01-13 23:56] LABS: A/G RATIO 0.35; B-TYPE NATRIURETIC PEPTIDE,BNP 14 pg/ml (0-100); C-REACTIVE PROTEIN < 0.50 ng/dL (<=0.50); ESTIMATED GFR 139 mL/min (>=60); ETHANOL BLOOD MEDICAL < 3 mg/dL (0); LACTIC ACID 0.6 mmol/L (0.4-2.0)
[2023-01-13 23:57] LABS: HCG QUALITATIVE,SERUM NEGATIVE (NEGATIVE)
[2023-01-14] MEDS ORDERED: Ondansetron 4 MG/2 ML SDV IVPUSH ONE (00:22)
[2023-01-14] MEDS ORDERED: Magnesium Sulfate/Water 2 GM in Premix Bag 1 BAG IV ONE ×2 (00:22→01:56)
[2023-01-14] MEDS ORDERED: Iopamidol 612 MG/ML 100 ML Bottle IVPUSH ONE (00:23)
[2023-01-14 00:41] LABS: APPEARANCE,URINE CLEAR (CLEAR); BILIRUBIN,URINE NEGATIVE (NEGATIVE); COLOR,URINE YELLOW (YELLOW); GLUCOSE,URINE NEGATIVE (NEGATIVE); KETONES,URINE TRACE (NEGATIVE); LEUKOCYTE ESTERASE,URINE TRACE (NEGATIVE); NITRITE,URINE NEGATIVE (NEGATIVE); OCCULT BLOOD,URINE NEGATIVE (NEGATIVE); PH,URINE 5.5 (5.0-9.0); PROTEIN,URINE NEGATIVE (NEGATIVE); UROBILINOGEN,URINE 0.2 mg/dL (0.2-1.0)
[2023-01-14 00:46] LABS: AMPHETAMINES,URINE NEGATIVE (NEGATIVE); BARBITURATES,URINE NEGATIVE (NEGATIVE); BENZODIAZEPINE,URINE NEGATIVE (NEGATIVE); MDMA (ECSTASY), URINE NEGATIVE (NEGATIVE); METHADONE,URINE NEGATIVE (NEGATIVE); METHAMPHETAMINES,URINE NEGATIVE (NEGATIVE); OPIATES,URINE NEGATIVE (NEGATIVE); OXYCODONE,URINE NEGATIVE (NEGATIVE); PHENCYCLIDINE,URINE NEGATIVE (NEGATIVE); TCA,URINE NEGATIVE (NEGATIVE)
[2023-01-14 01:04] LABS: BACTERIA,URINE FEW /HPF (0-FEW/HPF); EPITHELIAL CELLS,URINE FEW /HPF (NOT SEEN); RBC,URINE 0-5 /HPF (0-5); WBC,URINE 0-5 /HPF (0-5/HPF)
[2023-01-14 02:36] LABS: CORONAVIRUS COVID-19 NAA NEGATIVE (NEGATIVE); INFLUENZA A NAA NEGATIVE (NEGATIVE); INFLUENZA B NAA NEGATIVE (NEGATIVE); RESPIRATORY SYNCYTIAL VIR NAA NEGATIVE (NEGATIVE)
== END 2023-01-14 02:55 | disposition home or self-care (01) ==
LOC: DL.ED 22:22
DX: E83.42 Hypomagnesemia (principal); E88.09 Other disorders of plasma-protein metabolism, not elsewhere classified; R19.7 Diarrhea, unspecified; R11.0 Nausea; E11.9 Type 2 diabetes mellitus without complications; Z79.4 Long term (current) use of insulin; Z79.899 Other long term (current) drug therapy; Z86.16 Personal history of COVID-19; Z20.822 Contact with and (suspected) exposure to COVID-19
CPT/HCPCS: 0241U; 36415; 74177; 80053; 80305-QW; 80307; 81001; 83605; 83690; 83735; 83880; 84484; 84703; 85025; 86140; 87086; 93005; 93010; 96365; 96366; 96375; 99284; 99284-25; J2405; J3475; Q9967